=== PATIENT | male | born 1980 | race Caucasian/White ===

== ENCOUNTER 2016-10-27 11:31 | Observation (INO) | payer OTHER ==
[~2016-10-27] VITALS: Ht 182.9 cm; Wt 73.2 kg
[2016-10-27 13:08] LABS: BASO # 0.1 (0.0-0.2); BASO % 0.8 % (0.0-2.0); EOS # 0.1 (0.0-0.7); EOS % 1.8 % (0-4.0); GRAN # 4.8 (1.4-6.5); GRAN % 71.2 % (42.2-75.2); HEMATOCRIT 42.8 % (42.0-52.0); HEMOGLOBIN 14.5 g/dl (13.5-18.0); LYMPH % 15.2 % (20.0-51.0); MEAN CELL VOLUME 92 fl (80.0-100.0); MEAN CORPUSCULAR HEMOGLOBIN 31 pg (27.0-31.0); MEAN CORPUSCULAR HGB CONC 34 g/dl (33.0-37.0); MEAN PLATELET VOLUME 13.7 fl (7.4-10.4); MONO # 0.7 (0.1-0.6); MONO % 10.5 % (1.7-9.3); PLATELET COUNT 118 K/mm3 (130-400); RED BLOOD COUNT 4.66 M/mm3 (4.20-5.60); WHITE BLOOD COUNT 6.7 K/mm3 (4.8-10.8)
[2016-10-27 13:18] LABS: ALANINE AMINOTRANSFERASE 30 U/L (21-72); ALBUMIN 4.9 gm/dL (3.5-5.0); ALKALINE PHOSPHATASE 88 U/L (50-136); ANION GAP 13 mmol/L (7-16); BILIRUBIN,TOTAL 0.9 mg/dL (0.0-1.0); BLOOD UREA NITROGEN 9 mg/dL (9-20); CALCIUM 9.7 mg/dL (8.4-10.2); CARBON DIOXIDE 28 mmol/L (22-30); CHLORIDE 98 mmol/L (98-107); GLUCOSE 92 mg/dL (74-106); POTASSIUM 4.5 mmol/L (3.4-5.0); SODIUM 139 mmol/L (137-145); TOTAL PROTEIN 8.5 gm/dL (6.4-8.2)
[2016-10-27 13:20] LABS: ACETAMINOPHEN < 10 ug/mL (10-30); SALICYLATE < 1.0 mg/dL
[2016-10-27 14:08] LABS: AMPHETAMINE URINE NEGATIVE; BARBITURATES URINE NEGATIVE; BENZODIAZEPINES URINE NEGATIVE; BUPRENORPHINE URINE NEGATIVE; METHADONE URINE NEGATIVE; OPIATES URINE NEGATIVE; OXYCODONE URINE NEGATIVE; PHENCYCLIDINE URINE NEGATIVE; PROPOXYPHENE URINE NEGATIVE; THC CANNABINOIDS URINE NEGATIVE
[2016-10-27 21:10] VITALS: BP 118/62; PULSE 72; TEMP 98
[2016-10-28 05:56] VITALS: BP 120/82; PULSE 82; TEMP 98
[2016-10-28] MEDS ORDERED: ZYPREXA20 MG PO (09:48)
[2016-10-28 13:16] VITALS: BP 116/76; PULSE 97
[2016-10-28 20:00] VITALS: BP 112/69; PULSE 80; TEMP 98.2
[2016-10-29] VITALS: BP 132/83; PULSE 51; TEMP 97
[2016-10-29 00:36] VITALS: O2SAT 98
[2016-10-29 03:59] VITALS: BP 137/90; PULSE 71; TEMP 97.2; O2SAT 97
[2016-10-29 08:00] VITALS: BP 138/91; PULSE 57; TEMP 97.2
== END 2016-10-29 11:15 ==
LOC: COL.ER 11:31 → MEDICAL 16:40 → ICU 10-28 16:35 → MEDICAL 10-28 16:35 → ICU 10-28 16:35
PROVIDERS: Emergency Medicine
DX: F29 Unspecified psychosis not due to a substance or known physiological condition (principal)
CPT/HCPCS: 90791-AI; G0378

== ENCOUNTER 2016-10-29 12:00 | Observation (INO) | payer OTHER ==
[~2016-10-29] VITALS: Ht 167.6 cm; Wt 73.5 kg
[2016-10-29] VITALS (511 sets, daily range): BP systolic 130–133; BP diastolic 71–96; PULSE 68–70; TEMP 97.6–98; O2SAT 79–100
[~2016-10-29 12:00] MED LIST: ZYPREXA20 MG PO
[2016-10-30] VITALS (8 sets, daily range): BP systolic 117–129; BP diastolic 74–95; PULSE 56–76; TEMP 97.3–98.4; O2SAT 73–100
== END 2016-10-30 20:20 ==
LOC: ICU 12:00
DX: F29 Unspecified psychosis not due to a substance or known physiological condition (principal)
CPT/HCPCS: G0378; G0379